=== PATIENT | male | born 1995 | race African-American/Black ===

== ENCOUNTER 2019-07-04 13:00 | Emergency (ER) | payer SELFPAY ==
[~2019-07-04] VITALS: Ht 170.2 cm; Wt 61.2 kg
[2019-07-04 13:10] VITALS: BP 137/71
[2019-07-04] MEDS ORDERED: HYDROCODONE/APAP 5/325MG 1 EACH TABLET ONE (13:27)
[2019-07-04] MEDS ORDERED: AMOX/CLAVULANATE 875 MG TABLET ONE (13:27)
[2019-07-04] MEDS ORDERED: HYDROCODONE/APAP 5/325MG 1 EACH TABLET PO ONE (13:30)
[2019-07-04] MEDS ORDERED: AMOX/CLAVULANATE 875 MG TABLET PO ONE (13:30)
== END 2019-07-04 13:34 | disposition home or self-care (01) ==
LOC: ER 13:10
DX: K04.7 Periapical abscess without sinus (principal)

== ENCOUNTER 2021-05-02 23:45 | Emergency (ER) | payer BC ==
[~2021-05-02] VITALS: Ht 170.2 cm; Wt 59.0 kg
--- NOTE | 2021-05-03 00:01 | NUR ---
PT BIBS C/O SORETHROAT X3 DAYS. PATIENT ALERT AND ORIENTED X3. AMBULATORY WITH NON LABORED BREATHING.
--- NOTE | 2021-05-03 00:10 | NUR ---
STREP SWAB COLLECTED AND SENT TO LAB
--- NOTE | 2021-05-03 00:59 | NUR ---
Patient discharged to home in stable condition. Written and verbal after care instructions given. Patient verbalizes understanding of instruction. PT ambulatory with a steady gait
[2021-05-03 01:00] VITALS: BP 125/77
[2021-05-03] MEDS ORDERED: AMOX500C2 PO (20:43)
== END 2021-05-03 01:00 | disposition home or self-care (01) ==
LOC: ER 23:50
DX: J02.8 Acute pharyngitis due to other specified organisms (principal)
CPT/HCPCS: 86403-TC; 87070-TC

== ENCOUNTER 2021-05-03 18:44 | Emergency (ER) | payer BC ==
[~2021-05-03] VITALS: Ht 170.2 cm; Wt 59.0 kg
[2021-05-03] MEDS ORDERED: DEXAMETHASONE SOD PHOSPHATE 10 MG/ML VIAL IV ONE (19:30)
[2021-05-03] MEDS ORDERED: KETOROLAC TROMETHAMINE INJ 30 MG/ML VIAL IV ONE (19:30)
[2021-05-03] MEDS ORDERED: IV NS 0.9% 1,000 ML BAG IV ONE (19:30)
--- NOTE | 2021-05-03 19:30 | NUR ---
BIBSELF C/O THROAT PAIN X 3 DAYS. SEEN EARLIER AND DIAGNOSED W PHARYNGITIS. PT A/O X 4, RR EVEN AND UNLABORED NO SOB NOTED. PT VSS. WILL CONTINUE TO MONITOR.
[2021-05-03] MEDS ORDERED: DEXAMETHASONE SOD PHOSPHATE 10 MG/ML VIAL ONE (19:43)
[2021-05-03] MEDS ORDERED: KETOROLAC TROMETHAMINE 15 MG/ML VIAL ONE (19:43)
--- NOTE | 2021-05-03 19:59 | NUR ---
LAB AT BEDSIDE
[2021-05-03] MEDS ORDERED: DEXAMETHASONE SOD PHOSPHATE 6 MG in IV D5W 50 ML IV ONE (20:00)
[2021-05-03 20:03] VITALS: BP 131/74
[2021-05-03 20:27] LABS: MONOTEST NEGATIVE (NEGATIVE)
[2021-05-03] MEDS ORDERED: AMOX500C2 PO (20:43)
--- NOTE | 2021-05-03 21:05 | NUR ---
Patient discharged to home in stable condition. Written and verbal after care instructions given. Patient verbalizes understanding of instruction.
== END 2021-05-03 21:13 | disposition home or self-care (01) ==
LOC: ER 18:45
DX: J03.90 Acute tonsillitis, unspecified (principal); R13.10 Dysphagia, unspecified
CPT/HCPCS: 36415; 86308; 96361; 96374; 96375; 99284; J1100 ×2; J1885; J7030; J7060